=== PATIENT | female | born 1980 | race American Indian/Alaskan Native ===

== ENCOUNTER 2017-03-21 07:49 | Emergency (ER) | payer OTHER, MEDICAID ==
[2017-03-21] MEDS ORDERED: NACL 0.9% 1000 ML 1,000 ML IV ONE (11:16)
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
[2017-03-21 12:01] LABS: Basophils % (Auto) 0.4 % (0.0-1.8); Eosinophils # (Auto) 0.1 K/mm3 (0.0-0.4); Eosinophils % (Auto) 0.9 % (0.0-4.3); Hematocrit 32.6 % (30.3-42.9); Hemoglobin 11.7 gm/dl (10.1-14.3); Lymphocytes # (Auto) 1.8 K/mm3 (1.2-5.4); Lymphocytes % (Auto) 18.6 % (13.4-35.0); Mean Corpuscular HGB Conc 36 % (30-34); Mean Corpuscular Hemoglobin 31 pg (28-32); Mean Corpuscular Volume 85 fl (79-97); Monocytes # (Auto) 0.7 K/mm3 (0.0-0.8); Platelet Count 295 K/mm3 (140-440); Red Blood Count 3.82 M/mm3 (3.65-5.03); Red Cell Distribution Width 12.9 % (13.2-15.2)
[2017-03-21 12:18] LABS: Alanine Aminotransferase 13 units/L (7-56); Albumin 3.7 g/dL (3.9-5); BUN/Creatinine Ratio 10; Blood Urea Nitrogen 3 mg/dL (7-17); Calcium 9.5 mg/dL (8.4-10.2); Hemolysis Index 2
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
--- NOTE | 2017-03-21 12:43 | Ultrasound Report ---
ULTRASOUND ABDOMEN LIMITED History: Abdominal trauma during Findings: Targeted transabdominal ultrasound was performed in all 4 quadrants after abdominal trauma. There is no evidence for visceral injury or free fluid in the visualized abdomen. Moderate right hydronephrosis is noted which could be secondary to the . No convincing ureteral stone is demonstrated on the images. Impression: No evidence for visceral injury on ultrasound. Moderate right hydronephrosis.
--- NOTE | 2017-03-21 12:44 | Ultrasound Report ---
ULTRASOUND OB LIMITED History: Abdominal trauma during Technique: Transabdominal ultrasound with Doppler interrogation. Gestation: Single Position: Cephalic Placenta: Fundal Placental Grade: 1 No evidence for abruption. Heart Rate: 150 BPM
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
[2017-03-21 21:14] LABS: Bilirubin,Urine NEG (Negative); Blood,Urine NEG (Negative); Color,Urine Yellow (Yellow); Hyaline Casts,Urine 1 /LPF; Mucus,Urine 3+ /HPF; Nitrite,Urine NEG (Negative); Protein,Urine <15 mg/dL mg/dL (Negative)
[2017-03-21 22:57] VITALS: BP 124/72
== END 2017-03-21 22:57 | disposition home or self-care (01) ==
LOC: ED 07:49
DX: O26.893 Other specified pregnancy related conditions, third trimester (principal); R07.89 Other chest pain; Z3A.38 38 weeks gestation of pregnancy; V49.49XA Driver injured in collision with other motor vehicles in traffic accident, initial encounter; Y93.89 Activity, other specified; Y92.89 Other specified places as the place of occurrence of the external cause; Y99.8 Other external cause status
CPT/HCPCS: 36415; 71046; 76705; 76815; 80053; 81001; 84484; 85025; 86850; 86900; 86901; 93005; 93010; 96360